=== PATIENT | male | born 1950 | race Caucasian/White ===

== ENCOUNTER 2020-06-17 10:22 | Inpatient (IN) ==
--- NOTE | 2020-05-27 13:52 | PAT Medication Instructions ---
Medication Instructions Date of Service May 27, 2020 Home Medications acetaminophen 650 mg tablet,extended release 650 mg PO Q12H aspirin 81 mg tablet,delayed release 81 mg PO QAM calcium polycarbophil 625 mg tablet 625 mg PO WK levothyroxine 137 mcg tablet 137 mcg PO 6XWK loratadine 10 mg tablet 10 mg PO QAM polyethylene glycol 3350 17 gram/dose oral powder 17 gm PO QAM tamsulosin 0.4 mg capsule 0.4 mg PO HS cholecalciferol (vitamin D3) 2,000 unit PO QAM levothyroxine [Synthroid] 68.5 mcg PO WK lisinopril 10 mg PO QPM lisinopril 20 mg PO QAM psyllium husk 2 g PO QAM DO NOT take the morning of surgery calcium polycarbophil 625 mg tablet 625 mg PO WK loratadine 10 mg tablet 10 mg PO QAM polyethylene glycol 3350 17 gram/dose oral powder 17 gm PO QAM cholecalciferol (vitamin D3) 2,000 unit PO QAM lisinopril 20 mg PO QAM psyllium husk 2 g PO QAM Take morning of surgery With a small sip of water, OTHERWISE NOTHING TO EAT OR DRINK AFTER MIDNIGHT: acetaminophen 650 mg tablet,extended release 650 mg PO Q12H (if needed, may be taken up to four hours before surgery) aspirin 81 mg tablet,delayed release 81 mg PO QAM levothyroxine 137 mcg tablet 137 mcg PO 6XWK levothyroxine [Synthroid] 68.5 mcg PO WK Take evening before surgery acetaminophen 650 mg tablet,extended release 650 mg PO Q12H (if needed) tamsulosin 0.4 mg capsule 0.4 mg PO HS lisinopril 10 mg PO QPM Other Notes If you have any questions please call us at [phone] or [phone] or [phone] or [phone]
--- NOTE | 2020-05-31 13:30 | Anesthesiology Consultation ---
Date of Service May 31, 2020 Assessment & Plan (1) Encounter for pre-operative examination: COVID Status: As of 05/31 assessment, patient denies travel to endemic area, known exposure/sick contacts, or symptoms of COVID19. Patient instructed to follow strict social distancing guidelines, wear a mask in public and avoid travel for 14 days prior to surgery. Preoperative COVID19 testing to be completed prior to surgery. Patient made aware to self-isolate as much as possible between COVID testing and surgery. Per Dr Llanos ([facility] CT surgery) 05/20/20= "doing fantastic after myomectomy surgery...OK for any type of anesthesia for knee surgery." Cardiology (Dr. Garcia) 03/18/20 = "He is low risk for an intermediate risk surgery and does not need any further evaluation. He has no obstruction s/p his myectomy and does not need any special intraoperative management." Chart Review Chart Review: Acceptable Risk for Surgery and Patient seen in Pre Admission Testing Teaching & Discussion Instructed NPO after midnight before surgery, except medications with 15 cc of water. Medication instructions provided according to the PAT guidelines. History Surgery Operation Date: 06/17/20 09:20 Proposed Procedures p Right Total Knee Replacement - Edmond Tello MD Height/Weight Height: 5 ft 11 in Weight: 99.2 kg Allergies Allergy/AdvReac Type Severity Reaction Status Date / Time No Known Allergies Allergy Verified 05/26/20 08:29 Medications Home Medications Medication Instructions Recorded Confirmed Last Taken acetaminophen 650 mg 650 mg PO Q12H 01/30/20 05/26/20 Unknown tablet,extended release aspirin 81 mg tablet,delayed 81 mg PO QAM 01/30/20 05/26/20 Unknown release calcium polycarbophil 625 mg tablet 625 mg PO WK 01/30/20 05/26/20 Unknown levothyroxine 137 mcg tablet 137 mcg PO 6XWK 01/30/20 05/26/20 Unknown loratadine 10 mg tablet 10 mg PO QAM 01/30/20 05/26/20 Unknown polyethylene glycol 3350 17 17 gm PO QAM 01/30/20 05/26/20 Unknown gram/dose oral powder tamsulosin 0.4 mg capsule 0.4 mg PO HS 01/30/20 05/26/20 Unknown cholecalciferol (vitamin D3) 2,000 unit PO QAM 05/26/20 05/26/20 Unknown [Vitamin D3] levothyroxine [Synthroid] 68.5 mcg PO WK 05/26/20 05/26/20 Unknown lisinopril 10 mg PO QPM 05/26/20 05/26/20 Unknown lisinopril 20 mg PO QAM 05/26/20 05/26/20 Unknown psyllium husk 2 g PO QAM 05/26/20 05/26/20 Unknown Wheeled Walker #1 ea 05/31/20 05/31/20 Unknown Wheeled Walker #1 ea 05/31/20 05/31/20 Unknown Past Medical History Medical History (Updated 06/01/20 @ 10:41 by Ji Peralta) Cardiac murmur pt states has improved, follows with Dr. Garcia [facility] Cardiology History of radioactive iodine thyroid ablation History of thyroid cancer diagnosed 2014--sx, radioactive iodine HOCM (hypertrophic obstructive cardiomyopathy) s/p myomectomy [facility] 2017 Hypothyroidism ICD (implantable cardioverter-defibrillator) in place meditronic 05/12/2018 @ [facility] Osteoarthritis Past Family History Family History Father Family history of diabetes mellitus Other No family history of adverse response to anesthesia Past Surgical History Surgical History (Updated 06/01/20 @ 10:41 by Ji Peralta) History of appendectomy History of bilateral cataract extraction History of cardiac cath 2014 @ [facility], no stents History of colonoscopy with polypectomy History of esophagogastroduodenoscopy (EGD) History of nasal polypectomy History of open heart surgery 05/12/2018 myomectomy for HOCM @ [facility]--follows with Dr. Llanos [facility] [place] History of open reduction and internal fixation (ORIF) procedure left wrist---hardware removed History of thyroidectomy, total 2014 d/t thyroid cancer Hx of vasectomy Status post biopsy of thyroid gland malignant Past Anesthesia History No Hx of Anesthesia Complications and No Family Hx of Anesthesia Complications History of PONV No Hx of PONV and No Hx of Motion Sickness Social History Smoking Status: Former smoker Do You Dip or Chew Tobacco: No Smoking End Date: quit 50yrs ago Hx Alcohol Use: No Hx Substance Use: No substance use type: does not use Review of Systems Pt denies any recent chest pain, shortness of breath, palpitations, cough, fever or URI. Physical Exam Vital Signs BP: 137/78 (pt reports this is elevated compared to home readings) P: 71bpm SPO2: 98% RA T: 98.2 F R: 16 ENMT Mouth: + dental restorations; no chipped teeth and no loose teeth Thyromental Distance: > or= 3.5 Finger Breadths (3.5) Mallampati Class: I Neck normal visual inspection and + facial hair (thin mustache); neck extension not limited Respiratory normal respiratory effort Auscultation: lungs clear to auscultation bilaterally Cardiovascular Rate/Rhythm: regular rate and regular rhythm Heart Sounds: no murmur Vessels: no carotid bruit Extremities: no edema Testing Laboratory Results 05/31/20 13:42 05/31/20 13:42 PT 10.7 Seconds (9.0-12.0) 05/31/20 13:42 INR 1.0 (0.9-1.1) 05/31/20 13:42 APTT 28.7 Seconds (21.0-31.0) 05/31/20 13:42 Blood Type A Negative 05/31/20 13:42 Antibody Screen NEGATIVE 05/31/20 13:42 Electrocardiogram Date: 05/31/20 AV dual-paced rhythm at 71bpm. Chest X-Ray Date: 05/31/20 FINDINGS: Cardiomediastinal and hilar silhouettes are within normal limits. Prior median sternotomy. Left subclavian pacer/ICD. Calcific plaque of the thoracic aortic arch. No pneumothorax, pleural effusion, airspace consolidation or overt pulmonary edema. Mildly hyperinflated. Bones of the chest appear grossly intact. IMPRESSION: No acute process. Echocardiogram Date: 08/18/19 EF: 55-60% LV Function: normal Normal LV size. LVH. Non-obstructive hypertrophic cardiomyopathy. Peak gradient with valsalva was 5 mmHg. Normal RV size and function. Thickened AV with mild AI. Mild MR and TR. Borderline pHTN with est PASP 41 mmHg. Grade I dd. Dual chamber pacemaker. No significant change from previous echo from 06/25/18. Other Testing Holter Report 05/25/20 (47 hours) Predominant rhythm was sinus with artificial pacemaker, from 49 to 129 bpm, avg 72bpm. The longest R-R was 1.2 seconds. No symptoms were reported. Pacer/ICD check 05/25/20 Model: CryoMedix Implant date: 05/13/18 Battery: 2.97 volts, 6yrs/4mo remaining Mode: DDDR Pacin% RV paced, 55% Atrial paced Arrhythmias: 0 No events.
--- NOTE | 2020-05-31 14:05 | XRay Report ---
XR chest Pre-admission PA/Lat HISTORY: 69 years-old Male pat preoperative exam. No acute chest complaints COMPARISON: None TECHNIQUE: PA and lateral views of the chest FINDINGS: Cardiomediastinal and hilar silhouettes are within normal limits. Prior median sternotomy. Left subcl hank pacer/ICD. Calcific plaque of the thoracic aortic arch. No pneumothorax, pleural effusion, airs pace consolidation or overt pulmonary edema. Mildly hyperinflated. Bones of the chest appear grossly intact. IMPRESSION: No acute process. ACT 112: Negative or not required by law. The above report was generated using voice recognition software. It may contain grammatical, syntax o r spelling errors. Electronically signed by: Haris Jiménez M.D. 05/31/2020 2:04 PM
[2020-05-31 14:29] LABS: Basophils # (auto) 0.05 K/uL (0-0.2); Basophils % (auto) 0.7 %; Eosinophils # (auto) 0.25 K/uL (0-0.5); Eosinophils % (auto) 3.4 %; Hematocrit (blood only) 43.7 % (42-52); Hemoglobin 15.1 g/dL (14.0-18.0); Immature Granulocytes # (auto) 0.01 K/uL (0.00-0.02); Immature Granulocytes % (auto) 0.1 %; Lymphocytes # (auto) 1.62 K/uL (1.2-3.4); Lymphocytes % (auto) 21.9 %; Mean Corpuscular Hemoglobin 30.7 pg (25-34); Mean Corpuscular Hgb Conc 34.6 g/dL (32-36); Mean Corpuscular Volume 88.8 fL (80-100); Mean Platelet Volume 8.8 fL (7.4-10.4); Monocytes # (auto) 0.61 K/uL (0.11-0.59); Monocytes % (auto) 8.2 %; Neutrophils # (auto) 4.86 K/uL (1.4-6.5); Neutrophils % (auto) 65.7 %; Platelet Count 195 K/uL (130-400); RDW Coefficient of Variation 13.2 % (11.5-14.5); Red Blood Count 4.92 M/uL (4.7-6.1)
[2020-05-31 14:43] LABS: Partial Thromboplastin Time 28.7 Seconds (21.0-31.0); Prothrombin Time 10.7 Seconds (9.0-12.0)
[2020-05-31 16:01] LABS: BUN Creatinine Ratio 13.9 (10-20); Creatinine Clr Calc Pharmacy 94.6 ml/min; Est GFR (African American) 101.1; Est GFR (Non-African American) 87.2; Potassium 3.9 mmol/L (3.5-5.1)
--- NOTE | 2020-06-01 06:33 | Electrocardiogram Report ---
Test Reason : Blood Pressure : / mmHG Vent. Rate : 071 BPM Atrial Rate : 071 BPM P-R Int : 186 ms QRS Dur : 184 ms QT Int : 468 ms P-R-T Axes : 084 -73 103 degrees QTc Int : 508 ms AV dual-paced rhythm Abnormal ECG No previous ECGs available Confirmed by Chaz Riley ([id number]) on 06/01/2020 6:33:29 AM Referred By: Edmond Tello Confirmed By:Chaz Riley
--- NOTE | 2020-06-12 18:54 | History and Physical Report ---
DATE OF ADMISSION: 06/17/2020 CHIEF COMPLAINT: Bilateral knee pain and discomfort, right side greater than left. HISTORY OF PRESENT ILLNESS: The patient is a 69-year-old gentleman who is referred by my partner, Dr. Hartman, for surgical treatment of his right knee. He has about a 2-3 year history of increasing bilateral knee pain and discomfort with the right side being worse than the left. No injury or trauma. He has had multiple injections, which helped him for a month or two at best. He describes global pain. The more he walks, the more it hurts. It is really affecting his lifestyle and ability to maintain an active lifestyle. He takes Tylenol Arthritis with minimal relief. PAST MEDICAL HISTORY: 1. Hypertension. 2. History of hypertrophic cardiomyopathy, followed by [facility] Cardiology. 3. Thyroid cancer, status post resection. PAST SURGICAL HISTORY: Previous surgeries includes: 1. Heart surgery including a septal myomectomy done at [facility]. 2. Vasectomy. 3. Appendectomy. 4. Thyroid resection. 5. Broken arm surgery. ALLERGIES: None. CURRENT MEDICINES: Include: 1. Lisinopril. 2. Synthroid. 3. Aspirin. 4. Tamsulosin. 5. Loratadine. 6. Fiber caps 7. MiraLax. 8. Tylenol Arthritis. SOCIAL HISTORY: Significant for 69-year-old male patient from [place]. Does not smoke or drink. FAMILY HISTORY: Noncontributory. REVIEW OF SYSTEMS: Significant for this cardiac history and cardiomyopathy status post a cardiac myomectomy. No history of DVT or PE. No known bleeding problems. Denies any chest pain or shortness of breath. PHYSICAL EXAMINATION: GENERAL: Physical examination reveals a healthy, pleasant, middle-aged male. Looks to be in pretty good health. HEENT: Benign. NECK: Supple, no lymphadenopathy. LUNGS: Clear to auscultation. HEART: Has regular rate and rhythm. ABDOMEN: Soft, nontender, nondistended. EXTREMITIES: Grossly neurovascularly intact except as follows. Examination of the right knee reveals the patient walks with valgus alignment to his knee. Small knee effusion. Range of motion about 10 degrees short of full extension to 120 degrees of flexion. There is no instability. No pain with hip motion. Examination of the left knee reveals slightly less severe valgus alignment. Range of motion 5-125. No instability. No pain with hip motion. X-RAYS: X-rays of both knees reviewed. It shows advanced bilateral knee DJD. He has got complete loss of his lateral joint space on both sides, the right side is a bit worse than the left. ASSESSMENT: A 69-year-old male with a history of hypertrophic cardiomyopathy, status post myomectomy along with hypertension, who presents for surgical treatment of his knees, specifically the right knee. He has failed conservative treatment and would like to proceed with a right knee replacement. PLAN: We will take him to the Operating Room and do a right total knee replacement. The risks and benefits of this procedure were explained to the patient including but not limited to DVT, PE, , infection, neurological injury, vascular injury, bleeding problems, incomplete relief of symptoms, need for further surgery in future, fracture, leg length inequality, nerve palsy, etc. The patient understands and desires to proceed. Informed consent was obtained. We will plan on aspirin and TEDs and SCDs for DVT prophylaxis. He is hoping to be discharged to home using [facility]. AIYANA
[~2020-06-17 10:22] MED LIST: ACETAMINOPHEN 500 MG TAB PO SCH; BUPIVACAINE 0.5 % 5 MG/1 ML PF 10ML VIAL ONE; BUPIVACAINE LIPOSOME/PF 266 MG, BUPIVACAINE/EPINEPHRINE 50 ML, SODIUM CHLORIDE 0.9% 30 ... INFIL SCH; BUPIVACAINE/EPINEPHRINE 0.25% 1:200,000 30 ML VIAL ONE; CEFAZOLIN 2000MG 2,000 MG/15 ML SYR IV SCH; DEXAMETHASONE SOD INJ 4 MG/ML VIAL ONE; FAMOTIDINE 20 MG TAB PO SCH; GABAPENTIN 300 MG CAP PO SCH; LR 15ML/HR IV SCH; LR 60ML/HR IV SCH; METOCLOPRAMIDE HCL 10 MG TABLET PO SCH; TRANEXAMIC ACID 1,000 MG **IV Intra-op IV SCH
--- NOTE | 2020-06-17 11:33 | History & Physical Bridge Note ---
Date of Service June 17, 2020 History & Physical Bridge Note I have examined the patient, reviewed the History & Physical and in the interval since the performance of the History & Physical I have noted the following changes of clinical significance: no changes noted
[2020-06-17] MEDS ORDERED: ONDANSETRON INJ 2 MG/ML 2 ML VIAL ONE (13:18)
[2020-06-17] MEDS ORDERED: MIDAZOLAM HCL 1 MG/ML 2ML VIAL ONE ×2 (13:18→13:22)
[2020-06-17] MEDS ORDERED: fentaNYL citrate 100 MCG/2 ML VIAL ONE (13:18)
[2020-06-17] MEDS ORDERED: PROPOFOL IV EMULSION 10 MG/ML 20 ML VIAL IV ONE ×2 (13:18)
[2020-06-17] MEDS ORDERED: LIDOCAINE HCL 2% 2 ML VIAL/AMP(20MG/ML) INFIL ONE (13:19)
[2020-06-17] MEDS ORDERED: SODIUM CHLORIDE 0.9% PF 50 ML VIAL ONE (13:32)
[2020-06-17] MEDS ORDERED: BUPIVACAINE LIPOSOME 1.3% 266 MG/20 ML VIAL ONE (13:32)
[2020-06-17] MEDS ORDERED: BUPIVACAINE/EPINEPHRINE 0.25% 1:200,000 30 ML VIAL ONE (13:32)
[2020-06-17] MEDS ORDERED: BACITRACIN INJ 50,000 UNIT VIAL ONE (13:33)
[2020-06-17] MEDS ORDERED: KETOROLAC 30 MG/ML VIAL IV PRN (13:34)
[2020-06-17] MEDS ORDERED: ATROPINE SULFATE 0.1 MG/ML 10ML SYR IV PRN (13:34)
[2020-06-17] MEDS ORDERED: ePHEDrine sulfate 50 MG/ML AMP IV PRN (13:34)
[2020-06-17] MEDS ORDERED: HYDROmorphone INJ 1 MG/ML SYRINGE IV PRN (13:34)
[2020-06-17] MEDS ORDERED: ONDANSETRON INJ 2 MG/ML 2 ML VIAL IV PRN ×2 (13:34→16:46)
[2020-06-17] MEDS ORDERED: ROPIVACAINE 0.5% 5 MG/ML 30 ML VIAL ONE (13:35)
--- NOTE | 2020-06-17 15:50 | Post Operative Brief Note ---
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 Estimated Blood Loss 50 Findings Consistent with Post-Op Diagnosis Fluids 1200 cc Specimens Specimen Description: Permanent specimen: A. Right knee bone and tissue Drains Babb Catheter Anesthesia Type Spinal MAC Complications none Disposition Disposition: Recovery Room
--- NOTE | 2020-06-17 16:10 | XRay Report ---
XR knee RT 1 or 2V routine CLINICAL HISTORY: Postoperative evaluation. COMPARISON: Knee radiographs May 31, 2020. FINDINGS: Alignment of the total right knee arthroplasty is anatomic. There is no periprosthetic fra cture or unexpected radiopaque foreign body. There are skin lauren. IMPRESSION: Expected findings following total right knee arthroplasty. ACT 112: Negative or not required by law. Electronically signed by: Giorgi Ware M.D. 06/17/2020 4:09 PM
[2020-06-17] MEDS ORDERED: ALUMINUM/MAGNESIUM SUSP 30 ML UDC PO PRN (16:46)
[2020-06-17] MEDS ORDERED: NALOXONE HCL 0.4 MG/1 ML VIAL/CARP IV PRN (16:46)
[2020-06-17] MEDS ORDERED: METOCLOPRAMIDE HCL INJ 5 MG/ML 2 ML VIAL IV PRN (16:46)
[2020-06-17] MEDS ORDERED: HYDROmorphone INJ 0.5 MG/0.5 ML SYR IV PRN (16:46)
[2020-06-17] MEDS ORDERED: bisacodyL 10 MG SUPP PR PRN (16:46)
[2020-06-17] MEDS ORDERED: MAGNESIUM HYDROXIDE SUSP 30 ML UDC PO PRN (17:00)
[2020-06-17] MEDS: SODIUM CHLORIDE 0.9% 1000ML 1,000 ML IV SCH (17:09)
--- NOTE | 2020-06-17 17:50 | Operative Report ---
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 Patient had a valgus deformity to his knee. Extensive grade 4 [id number] disease of the lateral femoral condyle and lateral tibial plateau. He had spotty grade 4 changes of the medial compartment pretty extensive grade 4 changes of the patellofemoral compartment. Moderate-sized joint effusion. Fixed valgus deformity to his knee. Fluids 1200 cc. Specimens Right knee sent for pathology. Drains None. Anesthesia Type Spinal MAC Complications none Disposition Accompanied Patient To Recovery: No Disposition: Recovery Room Indications Patient is a 69-year-old fairly active gentleman is had a long history of bilateral knee pain discomfort right side greater than left. He has been through extensive conservative treatment in the past. He continually bothered by the pain limiting daily activities. He elected proceed with total knee arthroplasty. Simón Braden, my physician branch assistant, was present for the entire procedure. He was critical for patient positioning, prepping, draping, retraction, exposure, wound closure, and application of the sterile bandage. Description of Procedure Operative implants consisted of: 1. Biomet Vanguard size 67.5 right posterior by femoral component. 2. Biomet size 79 tibial tray. 3. 12 mm posterior stabilized polyethylene insert. 4. 34 x 8 and half all poly-patella. Patient was taken to the operating room identified and placed on the operating table supine position protectors were properly padded. IV antibiotics arrived by anesthesia team. A spinal anesthetic been implemented in the holding area. A Babb catheter was placed in sterile fashion. Right thigh tip was then placed in the right lower extremities and prepped draped in usual sterile fashion. The right leg was elevated exsanguinated with use of an Esmarch and turns placed at 3 mmHg. An anterior approach to the right knee was then performed through a longitudinal incision centered over the patella. Sharp dissection was got through subcutaneous this down the extensor mechanism. A medial parapatellar arthrotomy incision was made. Some subperiosteal dissection was carried out medially. The fat pad was dissected from each patella tendon. Lateral patellofemoral ligament was released. Patella was subluxated laterally and the knee was flexed. The osteophytes were taken off distal femur. The ACL and PCL were then released in the distal femur the tibia subluxate anteriorly. The external tibial alignment jig was then placed in the interface the tibia and adjusted 12 mm medially. Proximal tibial cut was made to move about 3 to 4 mm of bone from the medial side. Tibia was then sized to a size 79. Some osteophytes were taken of f medially. Attention drawn the femur. The distal femur was then with a sharp drop with intramedullary canal was suction. A right 5 degree valgus cutting guide was placed. Distal femoral cutting block was pinned in place. Distal femoral cut was made to take an additional 5 mm bone off distal femur in order to get down to the intercondylar notch area. The femur was then sized to a size 67.5. The AP cutting block was pinned parallel to the epicondylar axis which was 5 degrees of external rotation. The anterior cut, anterior chamfer, posterior cut, posterior chamfer cuts were made. Box cutting guide was placed in just slight lateral and the box cut was made. The knee was flexed. The remnants of the medial lateral menisci were excised. The osteophytes were taken off the posterior aspect of the femur. A trial femoral component was placed for the tibial tray was pinned in maximum external rotation and the drill and stem punch were used to create defect in proximal tip for the tibial tray. Knee was then trialed and the 12 mm insert fit most appropriately. Attention drawn the patella. The patella was cleaned of all soft tissues. Patella thickness measured 25 mm in thickness was cut down to 15. Was sized to a size 34 patella. The locals were drilled for 34 patella. Lateral osteophytes removed. Patella button was placed. Knee was taken through range of motion patella tracked nicely with no thumbs test. Attention drawn to placing the permanent components. All trial components were removed. A bone plug was placed in the disc femur limit blood loss. A double batch Palacos G cement was mixed. A BiomSiftyNetguard size 67.5 right posterior stabilized femoral component, a 79 tibial tray, 12 mm posterior stabilized insert, and a 34 x 8 and half all poly-patella were then cemented in place. Knee was brought out into full extension until cement hardened. Final cement check was then performed. The pericapsular tissues were injected with total 100 cc of combination of 20 of Exparel, 30 cc normal saline, 50 cc of quarter percent Marcaine with epinephrine. Patient did receive 1 g of tranexamic acid per the tourniquet was then let down for final turn time 62 minutes. MERARY stasis assured use electrocautery. The extensor neck was then closed with combination 1 PDS suture #1 Vicryl suture in a [id number] fashion. The extensor mechanism was checked and found to be intact the subcutaneous tissue then closed with 2 Dexon suture in a buried interrupted fashion skin was closed skin lauren. Leg was then cleaned dried a sterile dressing composed Xeroform, 4 x 4's, sterile cast padding, Aubrey bandage were applied. Patient transferred to the recovery room in stable condition. The patient tolerated procedure well and there were no complications. I attest to the content of the Intraoperative Record and any orders documented therein. Any exceptions are noted below.
[2020-06-17] MEDS: KETOROLAC TROMETHAMINE 15 MG/ML VIAL IV SCH (18:08)
[2020-06-17] MEDS: ASCORBIC ACID 500 MG TAB PO SCH (18:08)
[2020-06-17] MEDS: FERROUS GLUCONATE 324 MG TAB PO SCH (18:08)
--- NOTE | 2020-06-17 18:31 | Anesthesiology Progress Note ---
Date of Service June 17, 2020 Anesthesia Post Procedure Vital Signs Vital Signs: Temp Pulse Pulse Pulse Resp BP Pulse Ox 06/17/20 17:45 36.6 C 60 18 126/67 100 06/17/20 17:15 36.4 C L 60 18 146/72 H 100 06/17/20 16:45 36.4 C L 68 18 137/69 100 06/17/20 16:25 67 20 142/73 H 100 06/17/20 16:15 36.3 C L 69 13 144/57 H 100 06/17/20 16:05 78 12 158/62 H 99 06/17/20 15:55 36.3 C L 83 15 143/70 H 06/17/20 11:53 63 18 145/72 H 99 06/17/20 10:43 36.5 C 79 20 164/72 H 98 Transfer of Care Handoff Completed per policy Notes Mental Status: alert / awake / arousable and participated in evaluation Patient Amnestic to Procedure: Yes Nausea / Vomiting: adequately controlled Pain: adequately controlled Airway Patency, RR, SpO2: stable & adequate BP & HR: stable & adequate Hydration State: stable & adequate Neuraxial Anesthesia: was administered and sensory block is resolving Anesthetic Complications: no major complications apparent and Pt Satisfied with anesthetic care
--- NOTE | 2020-06-17 20:27 | Progress Notes ---
DATE: 06/17/2020 SUBJECTIVE: A 69-year-old gentleman postop from right knee replacement. He is doing well. His legs are still numb. No chest pain or shortness of breath. Not feeling dizzy or lightheaded. OBJECTIVE: VITAL SIGNS: Temperature 36.9. Vital signs stable. GENERAL: Shows a pleasant elderly male. He is sitting up in bed, talking to his and eating his dinner. Looks comfortable. LUNGS: Clear to auscultation. HEART: Has a regular rate and rhythm. ABDOMEN: Soft, nontender, nondistended. EXTREMITIES: Grossly neurovascularly intact except as follows: Examination of the right lower extremity reveals the leg to be well aligned. Dressing is clean, dry, and intact. He has no significant sensory or motor function yet. He has got brisk refill. Good distal pulse. X-RAYS: X-rays of the right knee from recovery room were reviewed. It shows a right cemented posterior stabilized total knee arthroplasty. Components looked to be in good position. No signs of problems. ASSESSMENT: A 69-year-old gentleman postoperative from right knee replacement, doing well. Pain is controlled. He has the block/spinal still in effect. PLAN: 1. DVT prophylaxis including thigh-high TEDs, SCDs, and aspirin twice a day. 2. PT/OT. Weight bear as tolerated. Right total knee protocol. 3. Pain control, doing well with current pain regimen. We will obviously have to adjust medicines as the spinal wears off. 4. IV antibiotics x24 hours. 5. Disposition: Plan to discharge to home likely with some home health once adequately recovered and medically stable.
[2020-06-17] MEDS: TAMSULOSIN HCL 0.4 MG CAP PO SCH (20:30)
[2020-06-17] MEDS: lisinopriL 10 MG TAB PO SCH (20:30)
[2020-06-17] MEDS: SENNA 8.6 MG TAB PO SCH (20:30)
[2020-06-17] MEDS: DOCUSATE SODIUM 100 MG CAP PO SCH (20:30)
[2020-06-17] MEDS: ASPIRIN 81 MG ECTAB PO SCH (20:30)
[2020-06-17] MEDS: ACETAMINOPHEN 500 MG TAB PO SCH (21:09)
[2020-06-17] MEDS: CEFAZOLIN 2000MG 2,000 MG/15 ML SYR IV SCH (21:12)
[2020-06-17] MEDS ORDERED: TRANEXAMIC ACID / 0.7% NACL 1,000 MG/100 ML BAG IV SCH (22:00)
[2020-06-18] MEDS: KETOROLAC TROMETHAMINE 15 MG/ML VIAL IV SCH ×5 (00:19→23:26)
[2020-06-18] MEDS: SODIUM CHLORIDE 0.9% 1000ML 1,000 ML IV SCH (03:10)
[2020-06-18] MEDS: TRAMADOL HCL 50 MG TABLET PO PRN ×2 (03:47→16:17)
[2020-06-18 05:24] LABS: Hematocrit (blood only) 33.1 % (42-52); Hemoglobin 11.4 g/dL (14.0-18.0); Mean Corpuscular Hemoglobin 30.6 pg (25-34); Mean Corpuscular Hgb Conc 34.4 g/dL (32-36); Mean Corpuscular Volume 88.7 fL (80-100); Mean Platelet Volume 8.8 fL (7.4-10.4); Platelet Count 158 K/uL (130-400); RDW Coefficient of Variation 13.1 % (11.5-14.5); RDW Standard Deviation 42.2 fL (36.4-46.3); Red Blood Count 3.73 M/uL (4.7-6.1); White Blood Count 9.43 K/uL (4.8-10.8)
[2020-06-18 05:53] LABS: BUN Creatinine Ratio 14.3 (10-20); Creatinine Clr Calc Pharmacy 82.5 ml/min; Est GFR (African American) 89.5; Est GFR (Non-African American) 77.3; Potassium 3.8 mmol/L (3.5-5.1)
[2020-06-18] MEDS: CEFAZOLIN 2000MG 2,000 MG/15 ML SYR IV SCH (06:38)
[2020-06-18] MEDS: ACETAMINOPHEN 500 MG TAB PO SCH ×3 (06:39→21:28)
[2020-06-18] MEDS: LEVOTHYROXINE SODIUM 137 MCG TABLET PO SCH (06:39)
[2020-06-18] MEDS: FERROUS GLUCONATE 324 MG TAB PO SCH ×2 (07:57→17:27)
[2020-06-18] MEDS: LORATADINE 10 MG TAB PO SCH (07:57)
[2020-06-18] MEDS: ASPIRIN 81 MG ECTAB PO SCH ×2 (07:58→21:27)
[2020-06-18] MEDS: DOCUSATE SODIUM 100 MG CAP PO SCH ×2 (07:58→21:27)
[2020-06-18] MEDS: ASCORBIC ACID 500 MG TAB PO SCH ×2 (07:58→17:27)
[2020-06-18] MEDS: lisinopriL 20 MG TAB PO SCH (07:58)
[2020-06-18] MEDS: CHOLECALCIFEROL 1,000 UNITS 25 MCG TAB PO SCH (07:59)
[2020-06-18] MEDS: MULTIVITAMIN TAB PO SCH (07:59)
[2020-06-18] MEDS: POLYETHYLENE (MIRALAX) 17 GM PACK PO SCH (08:00)
[2020-06-18] MEDS: PSYLLIUM 58.6% POWDER PACKET PO SCH (08:00)
--- NOTE | 2020-06-18 08:28 | Anesthesiology Progress Note ---
Date of Service June 18, 2020 Anesthesia Post Procedure Vital Signs Vital Signs: Temp Pulse Pulse Pulse Resp BP BP 06/18/20 07:25 36.7 C 68 16 146/69 H 06/18/20 03:38 36.8 C 63 16 132/64 06/18/20 00:03 36.5 C 68 16 135/62 06/17/20 20:29 60 137/68 06/17/20 19:53 36.9 C 60 18 134/66 06/17/20 19:01 36.4 C L 60 16 125/66 06/17/20 17:45 36.6 C 60 18 126/67 06/17/20 17:15 36.4 C L 60 18 146/72 H 06/17/20 16:45 36.4 C L 68 18 137/69 06/17/20 16:25 67 20 142/73 H 06/17/20 16:15 36.3 C L 69 13 144/57 H 06/17/20 16:05 78 12 158/62 H 06/17/20 15:55 36.3 C L 83 15 143/70 H 06/17/20 11:53 63 18 145/72 H 06/17/20 10:43 36.5 C 79 20 164/72 H Pulse Ox 06/18/20 07:25 99 06/18/20 03:38 98 06/18/20 00:03 97 06/17/20 20:29 06/17/20 19:53 99 06/17/20 19:01 99 06/17/20 17:45 100 06/17/20 17:15 100 06/17/20 16:45 100 06/17/20 16:25 100 06/17/20 16:15 100 06/17/20 16:05 99 06/17/20 15:55 100 06/17/20 11:53 99 06/17/20 10:43 98 Pain Intensity Right Knee: Pain Intensity: 3 Notes Mental Status: alert / awake / arousable and participated in evaluation Patient Amnestic to Procedure: Yes Nausea / Vomiting: adequately controlled Pain: adequately controlled Airway Patency, RR, SpO2: stable & adequate BP & HR: stable & adequate Hydration State: stable & adequate Neuraxial Anesthesia: was administered and sensory block resolved Anesthetic Complications: no major complications apparent
--- NOTE | 2020-06-18 09:21 | Progress Notes ---
DATE: 06/18/2020 SUBJECTIVE: A 69-year-old gentleman postop day 1 from a right knee replacement. He is doing well. Had a pretty good night. Pain is controlled. Nerve functions returned. No chest pain or shortness of breath. Not feeling dizzy or lightheaded. OBJECTIVE: VITAL SIGNS: Temperature 36.7. Vital signs stable. GENERAL: Physical examination shows a pleasant, middle-aged male. He is sitting up in bed, looks pretty comfortable this morning. EXTREMITIES: Examination of the right leg reveals the leg to be well aligned. Dressing is clean, dry and intact. He can dorsiflex and plantarflex his foot appropriately. He is neurologically intact. LABORATORY DATA: Hemoglobin 11.4. Hematocrit 33.1. Electrolytes are stable. ASSESSMENT: A 69-year-old gentleman postop day 1 from right knee replacement, doing pretty well. Pain is controlled. He is neurologically intact. PLAN: 1. DVT prophylaxis include thigh-high TEDs, SCDs, and aspirin twice a day. 2. PT/OT, weightbear as tolerated. Right total knee protocol. 3. Pain control, doing pretty well with current pain regimen. 4. Disposition: He is planning to be discharged to home with some home health once adequately recovered and medically stable. We will plan on discharge hopefully tomorrow after therapy.
[2020-06-18] MEDS: SENNA 8.6 MG TAB PO SCH (21:27)
[2020-06-18] MEDS: lisinopriL 10 MG TAB PO SCH (21:27)
[2020-06-18] MEDS: TAMSULOSIN HCL 0.4 MG CAP PO SCH (21:27)
[2020-06-19] MEDS: LEVOTHYROXINE SODIUM 137 MCG TABLET PO SCH (05:14)
[2020-06-19] MEDS: ACETAMINOPHEN 500 MG TAB PO SCH (05:14)
[2020-06-19] MEDS: KETOROLAC TROMETHAMINE 15 MG/ML VIAL IV SCH ×2 (05:15→05:18)
[2020-06-19] MEDS: FERROUS GLUCONATE 324 MG TAB PO SCH (07:49)
[2020-06-19] MEDS: LORATADINE 10 MG TAB PO SCH (07:50)
[2020-06-19] MEDS: ASCORBIC ACID 500 MG TAB PO SCH (07:50)
[2020-06-19] MEDS: DOCUSATE SODIUM 100 MG CAP PO SCH (07:50)
[2020-06-19] MEDS: ASPIRIN 81 MG ECTAB PO SCH (07:50)
[2020-06-19] MEDS: lisinopriL 20 MG TAB PO SCH (07:51)
[2020-06-19] MEDS: CHOLECALCIFEROL 1,000 UNITS 25 MCG TAB PO SCH (07:51)
[2020-06-19] MEDS: PSYLLIUM 58.6% POWDER PACKET PO SCH (07:51)
[2020-06-19] MEDS: POLYETHYLENE (MIRALAX) 17 GM PACK PO SCH (07:51)
[2020-06-19] MEDS: MULTIVITAMIN TAB PO SCH (07:52)
--- NOTE | 2020-06-19 09:43 | Progress Notes ---
DATE: 06/19/2020 SUBJECTIVE: A 69-year-old gentleman postop day 2 from a right knee replacement. He is doing pretty well. Pain is controlled. No chest pain or shortness of breath. Not feeling dizzy or lightheaded. OBJECTIVE: VITAL SIGNS: Temperature 36.7. Vital signs stable. GENERAL: Physical examination shows a pleasant, middle-aged male. He is sitting up in his bedside chair, looks pretty comfortable. EXTREMITIES: Examination of the right leg reveals the dressing to be clean, dry and intact. He can dorsiflex and plantarflex his foot appropriately. He is neurologically intact. ASSESSMENT: A 69-year-old gentleman postop day 2 from a left knee replacement, doing pretty well. His pain is controlled. PLAN: 1. DVT prophylaxis include thigh-high TEDs, SCDs, and aspirin twice a day. 2. PT/OT, weightbear as tolerated. Right total knee protocol. 3. Pain control, doing well with current pain regimen. 4. Disposition: He is planning to be discharged to home with some home health likely later today.
[2020-06-19] MEDS: TRAMADOL HCL 50 MG TABLET PO PRN (10:52)
[2020-06-20] MEDS ORDERED: LEVOTHYROXINE SODIUM 137 MCG TABLET PO SCH (06:30)
[2020-06-23] MEDS ORDERED: CALCIUM POLYCARBOPHIL 625MG TAB PO SCH (09:00)
--- NOTE | 2020-06-25 13:24 | Discharge Summary ---
Date of Service June 25, 2020 Admission HPI Per Admitting Provider Well documented in the admission H & P Admission Exam (Per Admitting) Constitutional Well documented in the admission H & P Discharge Data Consultations 06/17/20 16:46 Consult Case Management - Discharge Planning Routine Procedures Performed Operation Date: 06/17/20 12:30 Actual Procedures p Right Total Knee Replacement(Right) - Edmond Tello MD Hospital Course (1) Status post total right knee replacement: This patient is a 69 y/o male admitted on 06/17/20 and underwent right tota l knee arthroplasty. He tolerated the procedure well and there were no complications. Transferred to the PACU post op and later to the orthopedic floor for further care. He was given ancef for antibiotic prophylaxis. He was also given KELVIN stockings, SCDs, and aspirin for DVT prophylaxis. Hemoglobin, hematocrit, and vital signs were monitored during his hospital stay and remained stable. Did not require any blood transfusions. There were no complications during his hospital stay. By post op day #2 the patient was tolerating a regular diet, pain was reasonably controlled with oral pain medicine, and he was participating in physical therapy. On post op day #2 the patient was discharged home and set up with home health care. He was given printed discharge instructions including prescriptions for extra strength tylenol, aspirin, and tramadol. Continue physical therapy, weight bearing as tolerated. Continue KELVIN stockings. Follow up approximately 2 weeks post op or sooner if there are problems or concerns. Coding Level of Care Code None Diagnoses Status post total right knee replacement Z96.651
== END 2020-06-19 11:12 | disposition home health service (06) | DRG 470 ==
LOC: ASU 10:22 → 3E 10:22

== ENCOUNTER 2021-02-01 08:26 | Observation (INO) ==
--- NOTE | 2021-01-21 11:19 | Anesthesiology Consultation ---
Date of Service January 21, 2021 Assessment & Plan (1) Encounter for pre-operative examination: Chart Review Chart Review: Acceptable Risk for Surgery (pending preop Covid testing ) and Patient NOT seen in Pre Admission Testing Per nursing assessment 01/12/2021, patient denies any recent travel. No known Covid in the past 90 days. No known Covid positive contacts or Covid related symptoms. Patient scheduled for preop Covid testing 01/26/2021 = will await results. Per cardio letter 12/22/20= cardio writing letter regarding cardiac risk assessment. Hx of hypertrophic CM- s/p septal myectomy (04/2018)- complicated by complete HB and VT. Dual chamber ICD, Medtronic- pacer dependent. A fib- post operative - 1 episode by device interrogation for six hours. "He is considered to be of low cardiovascular risk with RCRI of 0.4% of adverse cardiac events and may proceed as scheduled with the planned knee replacement." Right TKA 06/17/2020 = SAB at L3-4. Magnet placed over pacer/AICD. Per Dr Llanos ([facility] CT surgery) 05/20/20= "doing fantastic after myomectomy surgery...OK for any type of anesthesia for knee surgery." History Surgery Operation Date: 02/01/21 13:30 Proposed Procedures p Left Total Knee Arthroplasty - Edmond Tello MD Height/Weight Height: 6 ft 1 in Weight: 99.79 kg Allergies Allergy/AdvReac Type Severity Reaction Status Date / Time No Known Allergies Allergy Verified 01/12/21 15:13 Medications Home Medications Medication Instructions Recorded Confirmed Last Taken calcium polycarbophil 625 mg tablet 625 mg PO WK 01/30/20 01/12/21 06/16/20 07:00 levothyroxine 137 mcg tablet 137 mcg PO 6XWK 01/30/20 01/12/21 06/17/20 07:00 loratadine 10 mg tablet 10 mg PO QAM 01/30/20 01/12/21 06/16/20 07:00 polyethylene glycol 3350 17 17 gm PO QAM 01/30/20 01/12/21 06/16/20 07:00 gram/dose oral powder tamsulosin 0.4 mg capsule 0.4 mg PO HS 01/30/20 01/12/21 06/16/20 23:00 cholecalciferol (vitamin D3) 2,000 unit PO QAM 05/26/20 01/12/21 06/16/20 07:00 [Vitamin D3] levothyroxine [Synthroid] 68.5 mcg PO WK 05/26/20 01/12/21 06/13/20 07:00 lisinopril 10 mg PO HS 05/26/20 01/12/21 06/16/20 23:00 lisinopril 20 mg PO QAM 05/26/20 01/12/21 06/16/20 07:00 psyllium husk 2 g PO QAM 05/26/20 01/12/21 06/16/20 07:00 Wheeled Walker #1 ea 05/31/20 01/12/21 Unknown Wheeled Walker #1 ea 05/31/20 01/12/21 Unknown acetaminophen [Tylenol Arthritis] 1,300 mg PO QAM 11/10/20 01/12/21 Unknown acetaminophen [Tylenol Extra 1,000 mg PO HS 11/10/20 01/12/21 Unknown Strength] aspirin [Aspir-81] 81 mg PO QAM 11/10/20 01/12/21 Unknown metoprolol succinate 25 mg PO QPM 01/12/21 01/12/21 Unknown Past Medical History Medical History (Updated 01/21/21 @ 12:15 by Mireya Chavez PA-C) Atrial fibrillation Postoperative- 1 episode by device interrogation for six hours per cardio records Cardiac murmur Pt states has improved, follows with Dr. Garcia [facility] No significant valve issues; non obstructive hypertrophic CM noted on 07/2020 ECHO History of thyroid cancer diagnosed 2014--s/p thyroidectomy, radioactive iodine HOCM (hypertrophic obstructive cardiomyopathy) s/p myomectomy [facility] 2017 Non obstructive hypertrophic CM per 07/2020 ECHO HTN (hypertension) Hypothyroidism ICD (implantable cardioverter-defibrillator) in place Meditronic 05/12/2018 @ [facility] Placed secondary to complete HB and VT "Pacer dependent" per cardio records Irregular heartbeat pt reports irregular HB, increased BP following covid vaccine. 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 Osteoarthritis Past Family History Family History Father Family history of diabetes mellitus Other No family history of adverse response to anesthesia Past Surgical History Surgical History History of appendectomy History of bilateral cataract extraction History of cardiac cath 2014 @ [facility], no stents History of colonoscopy with polypectomy MULTIPLE History of esophagogastroduodenoscopy (EGD) History of nasal polypectomy History of open heart surgery 05/12/2018 myomectomy for HOCM @ [facility]--follows with Dr. Llanos [facility] History of open reduction and internal fixation (ORIF) procedure left wrist---hardware removed History of thyroidectomy, total 2014 d/t thyroid cancer Hx of vasectomy Status post biopsy of thyroid gland malignant Social History Smoking Status: Former smoker Do You Dip or Chew Tobacco: No Smoking End Date: 50 years ago Hx Alcohol Use: No Hx Substance Use: No substance use type: does not use Testing Laboratory Results Blood Type A Negative 01/18/21 10:04 Antibody Screen NEGATIVE 01/18/21 10:04 Laboratory Tests 01/18/21 01/18/21 01/18/21 10:04 10:04 10:04 WBC 5.00 Hgb 15.2 Hct 44.0 Plt Count 201 PT 10.3 INR 1.0 Sodium 141 Potassium 4.4 Chloride 109 H Carbon Dioxide 29 BUN 16 Creatinine 1.05 Glucose 84 Electrocardiogram Date: 05/31/20 AV dual-paced rhythm at 71bpm. Chest X-Ray Date: 05/31/20 FINDINGS: Cardiomediastinal and hilar silhouettes are within normal limits. Prior median sternotomy. Left subclavian pacer/ICD. Calcific plaque of the thoracic aortic arch. No pneumothorax, pleural effusion, airspace consolidation or overt pulmonary edema. Mildly hyperinflated. Bones of the chest appear grossly intact. IMPRESSION: No acute process. Echocardiogram Date: 08/23/20 EF: 55-60% LV Function: normal RWMA: + none Other Findings: + diastolic dysfunction (Grade 1) Left ventricular wall thickness is increased, consistent with left ventricular hypertrophy. A pattern consistent with nonobstructive hypertrophic cardiomyopathy is present. Abnormal septal motion consistent with abnormal electrical activation. Right ventricle size mildly dilated. Left atrium moderately enlarged. Right atrium mildly enlarged. Thickened aortic valve. Mild AR. Mild RI. Compared to EKG from 08/18/2019no significant changes found. Other Testing Holter Report 05/25/20 (47 hours) Predominant rhythm was sinus with artificial pacemaker, from 49 to 129 bpm, avg 72bpm. The longest R-R was 1.2 seconds. No symptoms were reported. Pacemaker/ICD check 12/17/2020 = MDT (Medtronic). Implanted 05/11/18. Mode DDDR. Battery longevity5+ years. Atrial paced 73%. RV paced 85%. No arrhythmias noted. No events since 11/22/2020.
--- NOTE | 2021-01-25 23:15 | History and Physical Report ---
DATE OF ADMISSION: 02/01/2021 CHIEF COMPLAINT: Persistent left knee pain and discomfort. HISTORY OF PRESENT ILLNESS: A 70-year-old gentleman with some underlying cardiomyopathy who presents for followup of his right knee and surgical treatment of his left knee. He has got a long history of knee pain and discomfort. He is now about 7 months out from a right knee replacement and doing well. He continues to be bothered by left knee pain and discomfort. He has global pain. It is increased with weightbearing. He has had injections, which help him for a month or two at best. He is very happy with the right knee and would like to have his left knee replaced. He does have underlying cardiomyopathy and cleared by his planning engineer at [facility]. PAST MEDICAL HISTORY: 1. Hypertension. 2. Cardiomyopathy. 3. Thyroid cancer. PAST SURGICAL HISTORY: Include, 1. Heart surgery for septal myomectomy. 2. Vasectomy. 3. Appendectomy. 4. Thyroid resection. 5. Fractured arm surgery. 6. Right total knee replacement done on 06/17/2020. ALLERGIES: None. CURRENT MEDICATIONS: 1. Lisinopril 20 mg twice a day. 2. Synthroid 137 mcg a day. 3. Aspirin 81 mg. 4. Tamsulosin 0.4 mg. 5. Loratadine 10 mg. 6. Vitamin D3. 7. Fiber-Caps. 8. MiraLax. 9. Tylenol Arthritis. SOCIAL HISTORY: A 70-year-old male. He is from [place]. No significant alcohol intake. No smoking history. FAMILY HISTORY: Noncontributory. REVIEW OF SYSTEMS: Significant for this cardiomyopathy which is fairly well compensated. He is followed at [facility]. Denies any current chest pain or shortness of breath. No history of DVT or PE. No known bleeding problems. PHYSICAL EXAMINATION: GENERAL: Shows a pleasant, middle-aged male. He looks to be in pretty good health. HEENT: Exam is benign. NECK: Supple, no lymphadenopathy. LUNGS: Clear to auscultation. HEART: Has a regular rate and rhythm. ABDOMEN: Soft, nontender, nondistended. EXTREMITIES: Grossly neurovascularly intact except as follows: Examination of both knees reveals the patient ambulates independently. Examination of the left knee reveals a slight valgus alignment which is increased with weightbearing. Small knee effusion. Range of motion is about 5 degrees short of full extension to 120 degrees of flexion. No instability. No pain with hip motion. Examination of the right knee reveals well-healed incision. Minimal swelling. Range of motion of 0-125. No instability. X-RAYS: X-rays of the left knee reviewed. It shows advanced left knee lateral compartment DJD. He has got complete loss of his lateral joint space on the 45-degree flexion films. He has got subchondral sclerosis. The right knee replacement looks to be in good position. He has got a little bit of patellar tilt. ASSESSMENT: A 70-year-old gentleman now about 7 months out from a right knee replacement with left knee advanced lateral compartment degenerative joint disease. He has failed conservative treatment and would like to have his left knee replaced. PLAN: We will take him to the Operating Room and do a left total knee replacement. The risks and benefits of this procedure were explained to the patient including, but not limited to, DVT, PE, , infection, neurological injury, vascular injury, bleeding problem, pain, limited range of motion, stiffness, failure to relieve symptoms, incomplete relief of symptoms, need for further surgery in the future, fracture, leg length inequality, nerve palsy, and persistent pain. The patient understands and desires to proceed. Informed consent was obtained. We did talk to him about holding his lisinopril the morning of surgery. For deep venous thrombosis prophylaxis, we will use aspirin twice a day. He will likely be discharged to home using [facility] home health program.
[~2021-02-01 08:26] MED LIST changes: +BUPIVACAINE 0.25% 30 ML VIAL ONE; -BUPIVACAINE/EPINEPHRINE 0.25% 1:200,000 30 ML VIAL ONE; -CEFAZOLIN 2000MG 2,000 MG/15 ML SYR IV SCH; -DEXAMETHASONE SOD INJ 4 MG/ML VIAL ONE; -LR 15ML/HR IV SCH; +LR 500ML BOLUS, THEN 15ML/HR IV SCH; +ceFAZolin 2000MG 2,000 MG/15 ML SYR IV SCH
--- NOTE | 2021-02-01 09:02 | History & Physical Bridge Note ---
Date of Service February 01, 2021 History & Physical Bridge Note I have examined the patient, reviewed the History & Physical and in the interval since the performance of the History & Physical I have noted the following changes of clinical significance: no changes noted
[2021-02-01] MEDS ORDERED: fentaNYL citrate 100 MCG/2 ML VIAL ONE (09:33)
[2021-02-01] MEDS ORDERED: LIDOCAINE HCL 2% 2 ML VIAL/AMP(20MG/ML) INFIL ONE (09:33)
[2021-02-01] MEDS ORDERED: PROPOFOL IV EMULSION 10 MG/ML 20 ML VIAL IV ONE (09:33)
[2021-02-01] MEDS ORDERED: MIDAZOLAM HCL 1 MG/ML 2ML VIAL ONE (09:33)
[2021-02-01] MEDS ORDERED: ONDANSETRON INJ 2 MG/ML 2 ML VIAL IV PRN ×2 (10:27→14:17)
[2021-02-01] MEDS ORDERED: fentaNYL citrate 100 MCG/2 ML VIAL IV PRN (10:27)
[2021-02-01] MEDS ORDERED: ePHEDrine sulfate 50 MG/ML AMP IV PRN (10:27)
[2021-02-01] MEDS ORDERED: ATROPINE SULFATE 0.1 MG/ML 10ML SYR IV PRN (10:27)
[2021-02-01] MEDS ORDERED: SODIUM CHLORIDE 0.9% PF 50 ML VIAL ONE (10:43)
[2021-02-01] MEDS ORDERED: BUPIVACAINE LIPOSOME 1.3% 266 MG/20 ML VIAL ONE (10:44)
[2021-02-01] MEDS ORDERED: BACITRACIN INJ 50,000 UNIT VIAL ONE (10:44)
[2021-02-01] MEDS ORDERED: BUPIVACAINE 0.25% 30 ML VIAL ONE (10:44)
[2021-02-01] MEDS ORDERED: EPINEPHrine INJ 1 MG/ML AMP ONE (10:45)
[2021-02-01] MEDS ORDERED: ONDANSETRON INJ 2 MG/ML 2 ML VIAL ONE (11:54)
--- NOTE | 2021-02-01 13:05 | Operative Report ---
Post Operative Report Pre & Post Diagnosis Operation Date: 02/01/21 10:40 Pre-Op Diagnosis: Left Knee DJD, Left Knee Pain Post-Op Diagnosis: Left Knee DJD, Left Knee Pain I identified the patient and participated in the time-out.: Yes Procedure Operation Date: 02/01/21 10:40 Actual Procedures p Left Total Knee Arthroplasty(Left) - Edmond Tello MD Surgeon Edmond Tello MD Scooping Machine Tender Ricky PACHECO Estimated Blood Loss 50 Findings Consistent with Post-Op Diagnosis Operative findings real advanced left knee DJD. The grade 4 [id number] disease of the lateral femoral condyle and the lateral tibial plateau. He had some fairly minor changes to the trochlea but some grade 4 changes to the patella. The medial compartment was well-preserved. He did have a valgus deformity to his knee. Fluids 1500 cc. Specimens Left knee sent for pathology. Drains None. Anesthesia Type Spinal MAC Complications none Disposition Accompanied Patient To Recovery: No Disposition: Recovery Room Indications Patient is a 70-year-old gentleman said a long history of bilateral knee pain discomfort. He has been through extensive conservative treatment in the past. He had his right knee replaced about 9 to 10 months ago and is done well from this. He elected proceed with left total knee arthroplasty. Description of Procedure Operative implants consist of: 1 Biomet Vanguard size 67.5 left posterior stabilized femoral component. 2. Biomet size 75 tibial tray. 3. 10 mm posterior stabilized polyethylene insert. 4. 31 x 8 all polypatella. The patient was taken to the operating identified and placed on the operating table supine position but all contact areas were properly padded. IV antibiotics tried by anesthesia team. A spinal anesthetic and abductor canal block had provided holding area. Babb catheter was placed in sterile fashion for the left atrium was then placed in the left lower extremities and prepped and draped in usual sterile fashion. Left leg was elevated exsanguinated with use of an Esmarch and turns placed at 300 mmHg. An anterior approach to the left knee was then performed through longitudinal incision centered over the patella. Sharp dissection was carried through subcutaneous tissue down to the extensor mechanism. A medial parapatellar throb incision was made. Some subperiosteal dissection was carried out medially. The fat pad was resected from each the patella tendon. The lateral patellofemoral ligament was released. The patella subluxated laterally and the knee was flexed. The osteophytes were taken off distal femur. The ACL and PCL were then released from the distal femur and the tibia subluxated anteriorly. The external tibial alignment jig was then placed in the interface the tibia and adjusted 12 mm medially. Proximal tibial cut was made to remove about 3 4 mm of bone from the medial side. The tibia was then sized to a size 75. We did downsize this in order to get appropriate rotation. Attention drawn the femur. The distal femur stem with a sharp drill. Intramedullary canal was suction. A left 5 degree valgus cutting guide was placed. Distal femoral cutting block was pinned in place. Distal femur was then cut to make take an additional 5 mm off the distal femur as the even the with this 5 mm cut it barely got to the base of the notch. The knee was brought out in extension. I did release some the IT band in order to equalize extension gap care. Great care was taken throughout the procedure protect the peroneal nerve at all times. The knee was then flexed. Femur was sized to a size 67.5. We did downsize a slightly. The AP cutting block was pinned parallel to the epicondylar axis which was 5 degrees of external rotation. The anterior cut, anterior chamfer, posterior cut, posterior chamfer cuts were made. The box cutting guide was placed in just slight lateral box cut was made. The knee was flexed. The remnants of the medial lateral menisci were excised. The osteophytes were taken off the posterior aspect the femur. A trial femoral component was placed but the tibial tray was pinned in maximum external rotation and the drill and stem punch were used to create defect in proximal tibia for the tibial tray. Knee was then trialed and the 10 mm insert fit most appropriately. Attention drawn the patella. The patella was cleaned of all soft tissues. Patella thickness measured 23 mm in thickness was cut down to 14. Was sized to a size 31 patella. The lug holes for the 1231 patella were then created. The lateral osteophyte was removed. Patella button was placed. Knee was taken through range of motion patella tracked nicely with no thumbs test. Attention drawn to place the permanent components. All trial components were removed. Bone plug was placed in the distal femur limit blood loss put a double batch Palacos G cement was mixed. Biomet Vanguard size 67.5 left posterior stabilized femoral component, size 75 tibial tray, a 10 mm posterior stabilized polyethylene insert, and a 31 x 8 all polypatella then cemented in place. Knee was brought out in full extension total cement hardened. Final cement check was then performed. The pericapsular tissues were injected with total 100 cc of combination of 20 cc of Exparel, 30 cc normal saline, 50 cc of quarter percent Marcaine with epinephrine. Patient did receive 1 g tranexamic acid per the tech was then let down for final tourniquet time of 62 minutes. Hemostasis assured use electrocautery. Extensor mechanism closed with combination 1 PDS suture #1 Vicryl suture in [id number] fashion. The extensor mechanism checked found to be intact the subcutaneous tissue then closed with 2 Dexon suture in a buried interrupted fashion skin was closed skin lauren. Leg was then cleaned dried a sterile dressing both Xeroform, 4 x 4's, sterile cast padding, Aubrey bandage were applied. Patient then transferred to the recovery room in stable condition. Patient tolerated procedure well and there were no complications. Simón García, my physician assistant infant teacher, was present for the entire procedure. His assistance was essential and required for appropriate patient positioning, prepping and draping, surgical exposure, performing the technical details of the operation, placement the implants, closure of the wound, and placement of the sterile bandage. I attest to the content of the Intraoperative Record and any orders documented therein. Any exceptions are noted below.
--- NOTE | 2021-02-01 13:15 | XRay Report ---
TWO VIEWS LEFT KNEE CLINICAL HISTORY: Postoperative examination. FINDINGS: AP and crosstable lateral portable views of the left knee are obtained. A left knee arthrop lasty is in near anatomic alignment. There has been undersurface remodeling of the patella. No acute fracture is seen. There are expected postoperative changes around the knee including skin clips, soft tissue edema, and subcutaneous gas. IMPRESSION: Expected postoperative changes status post left knee arthroplasty. No acute fracture is s een. ACT 112: Negative or not required by law. Electronically signed by: Matheus Ling M.D. 02/01/2021 1:13 PM
--- NOTE | 2021-02-01 13:29 | Anesthesiology Progress Note ---
Date of Service February 01, 2021 Anesthesia Post Procedure Vital Signs Vital Signs: Temp Pulse Pulse Resp BP BP Pulse Ox 02/01/21 13:25 66 15 111/53 L 99 02/01/21 13:15 68 16 112/49 L 99 02/01/21 13:05 66 14 116/56 L 100 02/01/21 12:58 36.3 C L 68 14 109/52 L 100 02/01/21 08:43 36.6 C 76 18 158/104 H 99 Transfer of Care Handoff Completed per policy Notes Mental Status: alert / awake / arousable Patient Amnestic to Procedure: Yes Nausea / Vomiting: adequately controlled Pain: adequately controlled Airway Patency, RR, SpO2: stable & adequate BP & HR: stable & adequate Hydration State: stable & adequate Neuraxial Anesthesia: was administered and sensory block is resolving Anesthetic Complications: no major complications apparent and Pt Satisfied with anesthetic care
[2021-02-01] MEDS ORDERED: NALOXONE HCL 0.4 MG/1 ML VIAL/CARP IV PRN (14:17)
[2021-02-01] MEDS ORDERED: oxyCODONE HCL IR 5 MG TAB (IMMEDIATE RELEASE) PO PRN (14:17)
[2021-02-01] MEDS ORDERED: HYDROmorphone INJ 0.5 MG/0.5 ML SYR IV PRN (14:17)
[2021-02-01] MEDS ORDERED: MAGNESIUM HYDROXIDE SUSP 30 ML UDC PO PRN (14:17)
[2021-02-01] MEDS ORDERED: bisacodyL 10 MG SUPP PR PRN (14:17)
[2021-02-01] MEDS ORDERED: ALUMINUM/MAGNESIUM SUSP 30 ML UDC PO PRN (14:17)
[2021-02-01] MEDS ORDERED: METOCLOPRAMIDE HCL INJ 5 MG/ML 2 ML VIAL IV PRN (14:17)
[2021-02-01] MEDS: SODIUM CHLORIDE 0.9% 1000ML 1,000 ML IV SCH (14:31)
[2021-02-01] MEDS: ACETAMINOPHEN 500 MG TAB PO SCH ×2 (15:35→22:33)
[2021-02-01] MEDS: KETOROLAC TROMETHAMINE 15 MG/ML VIAL IV SCH ×2 (15:38→22:32)
[2021-02-01] MEDS: ASCORBIC ACID 500 MG TAB PO SCH (17:19)
[2021-02-01] MEDS ORDERED: TRANEXAMIC ACID / 0.7% NACL 1,000 MG/100 ML BAG IV SCH (19:00)
[2021-02-01] MEDS: ceFAZolin 2000MG 2,000 MG/15 ML SYR IV SCH (19:51)
[2021-02-01] MEDS: TAPENTADOL HCL ER 50 MG TABCR PO SCH (20:46)
[2021-02-01] MEDS: ASPIRIN 81 MG ECTAB PO SCH (20:46)
[2021-02-01] MEDS: DOCUSATE SODIUM 100 MG CAP PO SCH (20:48)
[2021-02-01] MEDS ORDERED: lisinopril 10 MG TAB PO SCH (21:00)
[2021-02-01] MEDS ORDERED: METOPROLOL SUCC 25MG EXT REL TAB PO SCH (21:00)
[2021-02-01] MEDS ORDERED: TAMSULOSIN HCL 0.4 MG CAP PO SCH (21:00)
[2021-02-01] MEDS ORDERED: SENNA 8.6 MG TAB PO SCH (21:00)
[2021-02-02] MEDS: SODIUM CHLORIDE 0.9% 1000ML 1,000 ML IV SCH (00:43)
[2021-02-02] MEDS: ceFAZolin 2000MG 2,000 MG/15 ML SYR IV SCH (02:32)
[2021-02-02] MEDS: KETOROLAC TROMETHAMINE 15 MG/ML VIAL IV SCH ×2 (04:27→10:10)
[2021-02-02] MEDS: ACETAMINOPHEN 500 MG TAB PO SCH (05:47)
[2021-02-02 06:11] LABS: Hematocrit (blood only) 31.3 % (42-52); Hemoglobin 10.9 g/dL (14.0-18.0); Mean Corpuscular Hemoglobin 30.4 pg (25-34); Mean Corpuscular Hgb Conc 34.8 g/dL (32-36); Mean Corpuscular Volume 87.2 fL (80-100); Mean Platelet Volume 8.9 fL (7.4-10.4); Platelet Count 134 K/uL (130-400); RDW Standard Deviation 42.2 fL (36.4-46.3); Red Blood Count 3.59 M/uL (4.7-6.1); White Blood Count 7.16 K/uL (4.8-10.8)
[2021-02-02] MEDS ORDERED: LEVOTHYROXINE SODIUM 137 MCG TABLET PO SCH (06:30)
[2021-02-02 06:43] LABS: BUN Creatinine Ratio 16.9 (10-20); Calcium 7.9 mg/dl (8.5-10.1); Creatinine Clr Calc Pharmacy 87.6 ml/min; Est GFR (African American) 91.2; Est GFR (Non-African American) 78.7; Potassium 3.6 mmol/L (3.5-5.1)
[2021-02-02] MEDS: ASCORBIC ACID 500 MG TAB PO SCH (07:54)
[2021-02-02] MEDS: ASPIRIN 81 MG ECTAB PO SCH (07:55)
[2021-02-02] MEDS: DOCUSATE SODIUM 100 MG CAP PO SCH (07:55)
[2021-02-02] MEDS: TAPENTADOL HCL ER 50 MG TABCR PO SCH (07:57)
[2021-02-02] MEDS ORDERED: dexAMETHasone 4 MG TAB PO SCH (08:00)
--- NOTE | 2021-02-02 08:05 | Anesthesiology Progress Note ---
Date of Service February 02, 2021 Anesthesia Post Procedure Vital Signs Vital Signs: Temp Pulse Pulse Resp BP BP Pulse Ox 02/02/21 07:49 36.6 C 61 18 131/65 98 02/02/21 02:33 36.6 C 60 16 108/55 L 98 02/01/21 22:10 36.7 C 59 L 16 119/61 97 02/01/21 19:25 36.7 C 63 16 159/69 H 97 02/01/21 17:18 36.4 C L 62 16 147/76 H 100 02/01/21 16:40 36.4 C L 65 16 144/71 H 100 02/01/21 15:43 36.3 C L 67 15 138/66 96 02/01/21 14:44 36.3 C L 60 15 122/57 L 99 02/01/21 14:18 36.3 C L 66 15 110/56 L 98 02/01/21 14:05 36.6 C 02/01/21 13:55 66 14 118/57 L 94 02/01/21 13:45 65 15 108/51 L 97 02/01/21 13:35 66 12 112/50 L 95 02/01/21 13:25 66 15 111/53 L 99 02/01/21 13:15 68 16 112/49 L 99 02/01/21 13:05 66 14 116/56 L 100 02/01/21 12:58 36.3 C L 68 14 109/52 L 100 02/01/21 08:43 36.6 C 76 18 158/104 H 99 Pain Intensity Right Knee: Pain Intensity: 5 Notes Mental Status: alert / awake / arousable Patient Amnestic to Procedure: Yes Nausea / Vomiting: adequately controlled Pain: adequately controlled Airway Patency, RR, SpO2: stable & adequate BP & HR: stable & adequate Hydration State: stable & adequate Neuraxial Anesthesia: was administered and sensory block resolved Anesthetic Complications: no major complications apparent and Pt Satisfied with anesthetic care
[2021-02-02] MEDS ORDERED: lisinopril 20 MG TAB PO SCH (09:00)
[2021-02-02] MEDS ORDERED: PSYLLIUM 58.6% POWDER PACKET PO SCH ×2 (09:00)
[2021-02-02] MEDS ORDERED: LORATADINE 10 MG TAB PO SCH (09:00)
[2021-02-02] MEDS ORDERED: CHOLECALCIFEROL 1,000 UNITS 25 MCG TAB PO SCH (09:00)
[2021-02-02] MEDS ORDERED: CALCIUM POLYCARBOPHIL 625MG TAB PO SCH (09:00)
[2021-02-02] MEDS ORDERED: MULTIVITAMIN TAB PO SCH (09:00)
[2021-02-02] MEDS ORDERED: POLYETHYLENE (MIRALAX) 17 GM PACK PO SCH (09:00)
--- NOTE | 2021-02-02 14:41 | Progress Notes ---
DATE: 02/02/2021 SUBJECTIVE: A 70-year-old gentleman postop day 1 from a left knee replacement. He is doing well. His pain is controlled. Therapy went well. He is looking to go home this afternoon if he gets up and walks well this afternoon. No chest pain or shortness of breath. Not feeling dizzy or lightheaded. OBJECTIVE: VITAL SIGNS: Temperature 36.6. Vital signs stable. GENERAL: Shows a pleasant, middle-aged male. He is sitting up in his bed and looks quite comfortable. LUNGS: Clear to auscultation. HEART: Regular rate and rhythm. ABDOMEN: Soft, nontender, nondistended. EXTREMITIES: Grossly neurovascularly intact except as follows: Examination of the left leg reveals the dressing to be clean, dry and intact. Leg is well aligned. He can dorsiflex and plantarflex his foot appropriately. He can do a good straight leg raise. LABORATORY DATA: Hemoglobin 10.9. Hematocrit 31.3. Electrolytes are stable. ASSESSMENT: A 70-year-old gentleman postoperative day 1 from a left knee replacement. He is doing remarkably well. Pain is controlled. He is neurologically intact. PLAN: 1. DVT prophylaxis including thigh-high TEDs, SCDs, and aspirin twice a day. 2. PT/OT. Weight bear as tolerated. Left total knee protocol. 3. Pain control, doing well with current pain regimen. 4. Disposition: Plan to discharge to home with some home health later today if he does okay walking the halls and up and down a couple of steps.
--- NOTE | 2021-02-05 07:03 | Discharge Summary ---
Date of Service February 05, 2021 Discharge Data Consultations 02/01/21 14:17 Consult Case Management - Discharge Planning Routine Procedures Performed Operation Date: 02/01/21 10:40 Actual Procedures p Left Total Knee Arthroplasty(Left) - Edmond Tello MD Hospital Course (1) Status post total left knee replacement: This patient is a 70 year old male admitted on 02/01/21 and underwent total knee arthroplasty. He tolerated the procedure well and there were no complications. Transferred to the PACU post op and later to the orthopedic floor for further care. He was given ancef for antibiotic prophylaxis. He was also given KELVIN stockings, SCDs, and aspirin for DVT prophylaxis. Hemoglobin, hematocrit, and vital signs were monitored during his hospital stay and remained stable. Did not require any blood transfusions. There were no complications during his hospital stay. By post op day #1 the patient was tolerating a regular diet, pain was reasonably controlled with oral pain medicine, and he was participating in physical therapy. On post op day #1 the patient was discharged home and set up with home health care. He was given printed discharge instructions including prescriptions for extra strength tylenol, aspirin, and oxycodone. Continue physical therapy, weight bearing as tolerated. Continue KELVIN stockings. Follow up approximately 2 weeks post op or sooner if there are problems or concerns. Coding Level of Care Code None Diagnoses Status post total left knee replacement Z96.652
[2021-02-06] MEDS ORDERED: LEVOTHYROXINE SODIUM 137 MCG TABLET PO SCH (06:30)
== END 2021-02-02 14:07 | disposition home health service (06) ==
LOC: ASU 08:26 → 3E 08:26